=== PATIENT | female | born 1980 | race American Indian/Alaskan Native ===

== ENCOUNTER 2018-01-20 10:37 | Outpatient (CLI) | payer OTHER | END 2018-01-20 11:33 | disposition home or self-care (01) | LOC: NST 10:37 | DX: Z34.03 Encounter for supervision of normal first pregnancy, third trimester (principal) ==

== ENCOUNTER → 2018-02-03 | Outpatient (CLI) | payer OTHER | END | disposition home or self-care (01) | LOC: NST 16:34 | DX: O16.3 Unspecified maternal hypertension, third trimester (principal); Z34.83 Encounter for supervision of other normal pregnancy, third trimester ==

== ENCOUNTER 2018-02-20 09:08 | Outpatient (CLI) | payer OTHER | END 2018-02-20 10:14 | disposition home or self-care (01) | LOC: NST 09:08 | DX: Z34.83 Encounter for supervision of other normal pregnancy, third trimester (principal) ==

== ENCOUNTER 2018-02-28 10:41 | Inpatient (IN) | payer OTHER ==
[~2018-02-28] VITALS: Ht 175.3 cm; Wt 158.8 kg
[2018-02-28] MEDS ORDERED: LABETALOL HCL200 MG PO (10:43)
[2018-03-07] MEDS ORDERED: PRENATAL TABLE1 EAC1 PO (15:55)
== END 2018-03-10 11:11 | disposition home or self-care (01) | DRG 788 ==
LOC: LDR 03-07 10:15 → OB/GYN 03-07 19:44
PROVIDERS: ADMIT Obstetrics & Gynecology Maternal & Fetal Medicine
PROC: 4A1HXCZ Monitoring of Products of Conception, Cardiac Rate, External Approach (ICD-10-PCS; 2018-03-07)
PROC: 10D00Z1 Extraction of Products of Conception, Low, Open Approach (ICD-10-PCS; principal; 2018-03-07 10:15)
DX: O32.1XX0 Maternal care for breech presentation, not applicable or unspecified (principal); O75.82 Onset (spontaneous) of labor after 37 completed weeks of gestation but before 39 completed weeks gestation, with delivery by (planned) cesarean section; O34.211 Maternal care for low transverse scar from previous cesarean delivery; Z3A.37 37 weeks gestation of pregnancy; Z37.0 Single live birth

== ENCOUNTER 2018-03-04 13:16 | Outpatient (CLI) | payer OTHER ==
[~2018-03-04 13:16] MED LIST: LABETALOL HCL200 MG PO
== END 2018-03-04 14:35 | disposition home or self-care (01) ==
LOC: NST 13:16
DX: Z34.83 Encounter for supervision of other normal pregnancy, third trimester (principal)